=== PATIENT | male | born 1960 | race Caucasian/White ===

== ENCOUNTER → 2016-05-10 | Outpatient (CLI) | payer BC ==
[2016-05-10 08:00] LABS: Basophils % (A) 1 %; CH 30.7; CHCM 34.7; Eosinophils # (A) 0.2 k/uL (0-0.7); Eosinophils % (A) 3 %; HCT 41.9 % (39.0-53.0); HDW 2.52; HGB 13.9 gm/dL (13.0-17.5); Luc # (Auto) 0.15; Luc % (Auto) 3; Lymphocytes # (A) 1.1 k/uL (1.0-4.8); Lymphocytes % (A) 22 %; MCH 29.4 pg (25.0-35.0); MCHC 33.2 g/dL (31.0-37.0); MCV 88.8 fL (80.0-100.0); Mean Platelet Volume 7.7; Monocytes # (A) 0.2 k/uL (0-1.0); Monocytes % (A) 4 %; Neutrophils # (A) 3.4 k/uL (1.3-7.7); Neutrophils % (A) 67 %; RBC 4.71 m/uL (4.30-5.90); RDW 12.6 % (11.5-15.5); WBC (Perox) 5.31
[2016-05-10 08:21] LABS: ALT 33 U/L (21-72); AST 16 U/L (17-59); Alkaline Phosphatase 63 U/L (38-126); Anion Gap 9 mmol/L; Blood Urea Nitrogen 17 mg/dL (9-20); Calcium 8.9 mg/dL (8.4-10.2); Carbon Dioxide 26 mmol/L (22-30); Chloride 106 mmol/L (98-107); Cholesterol 171 mg/dL (<200); Glucose 160 mg/dL (74-99); HDL Cholesterol 38 mg/dL (40-60); Non-African American GFR(MDRD) 59 (>60 ml/min/1.73 sqM); Potassium 4.5 mmol/L (3.5-5.1); Sodium 141 mmol/L (137-145); Total Bilirubin 1.1 mg/dL (0.2-1.3); Total Protein 6.5 g/dL (6.3-8.2); Triglycerides 185 mg/dL (<150)
[2016-05-10 11:34] LABS: Hemoglobin A1C 6.6 % (4.2-6.1)
== END | disposition home or self-care (01) ==
LOC: LABWHC1 07:21
PROVIDERS: ATTEND Internal Medicine Geriatric Medicine
DX: G60.3 Idiopathic progressive neuropathy (principal); N18.9 Chronic kidney disease, unspecified; E11.65 Type 2 diabetes mellitus with hyperglycemia
CPT/HCPCS: 36415; 80053; 80061; 83036; 84439; 84443; 85025

== ENCOUNTER 2016-09-20 11:13 | Inpatient (IN) | payer OTHER ==
[2016-09-20] MEDS ORDERED: DILTIAZEM 5 MG/ML 5 ML VIAL IVP STA (11:40)
[2016-09-20] MEDS ORDERED: DILTIAZEM 125 MG in SODIUM CHLORIDE 0.9% 100 ML IV ONE (11:45)
--- NOTE | 2016-09-20 11:47 | ED ---
General Adult HPI - General Chief complaint: Arrhythmia/Palpitations Stated complaint: racing heart Time Seen by Provider: 09/20/16 11:25 Source: patient, RN notes reviewed Mode of arrival: wheelchair Limitations: no limitations - History of Present Illness Initial comments: Patient is a pleasant 55-year-old male presenting to the emergency Department with palpitations. Patient has had symptoms since this morning. Symptoms occur with exertion. Patient has had 3 episodes of exertion with associated palpitations. Patient questions if there may be minimal associated shortness of breath. Patient has been more sweaty than normal today. Patient is unclear if this is from the heat and humidity or symptoms. No chest pain. No nausea. No history of similar symptoms previously. - Related Data Home Medications Medication Instructions Recorded Confirmed Hydrocortisone Pr Cream 1 applic RECTAL BID PRN 09/20/16 09/20/16 [Proctosol-Hc 2.5%] Ibuprofen [Motrin] 600 mg PO Q8H PRN 09/20/16 09/20/16 Irbesartan [Avapro] 300 mg PO HS 09/20/16 09/20/16 glipiZIDE XL [Glucotrol Xl] 2.5 mg PO BID 09/20/16 09/20/16 metFORMIN HCL ER [Glucophage Xr] 1,000 mg PO AC-BID 09/20/16 09/20/16 Allergies Allergy/AdvReac Type Severity Reaction Status Date / Time No Known Allergies Allergy Verified 09/20/16 11:56 Review of Systems ROS Statement: Those systems with pertinent positive or pertinent negative responses have been documented in the HPI. ROS Other: All systems not noted in ROS Statement are negative. Constitutional: Denies: fever Eyes: Denies: eye pain ENT: Denies: ear pain Respiratory: Denies: cough Cardiovascular: Reports: palpitations. Denies: chest pain Endocrine: Reports: fatigue Gastrointestinal: Denies: abdominal pain, nausea Genitourinary: Denies: urgency Musculoskeletal: Denies: back pain Skin: Denies: rash Neurological: Denies: weakness Past Medical History Past Medical History: Diabetes Mellitus, Hypertension History of Any Multi-Drug Resistant Organisms: None Reported Past Surgical History: Hernia Repair Additional Past Surgical History / Comment(s): varicose vein stripping Past Psychological History: No Psychological Hx Reported Smoking Status: Never smoker Past Alcohol Use History: Rare Past Drug Use History: None Reported General Exam Limitations: no limitations General appearance: alert, in no apparent distress Head exam: Present: atraumatic Eye exam: Present: normal appearance, PERRL ENT exam: Present: normal oropharynx Neck exam: Present: normal inspection Respiratory exam: Present: normal lung sounds bilaterally Cardiovascular Exam: Present: tachycardia, irregular rhythm Expanded Peripheral pulses: 2+: Radial (R), Radial (L), Posterior Tibialis (R), Posterior Tibialis (L) GI/Abdominal exam: Present: soft. Absent: tenderness Extremities exam: Present: normal inspection. Absent: pedal edema, calf tenderness Back exam: Present: normal inspection Neurological exam: Present: alert Psychiatric exam: Present: normal affect, normal mood Skin exam: Present: normal color Course Vital Signs 09/20/16 09/20/16 09/20/16 11:15 11:47 12:53 Temperature 98.1 F Pulse Rate 84 115 H Pulse Rate [ 141 H Web Administrator ] Respiratory 20 16 Rate Blood Pressure 143/82 131/78 O2 Sat by Pulse 98 94 L Oximetry EKG Findings - EKG Comments: EKG Findings:: A flutter with 21 AV conduction. Rate 139. QRS 88. QT 320. QTc 486. Normal axis. Normal QRS. No acute ST change. Medical Decision Making - Medical Decision Making Patient reevaluated and resting comfortably in bed. Patient updated on results and plan. Dr. Lock has been paged for admission for Dr. Reinoso. Heart rate remains between 101 20 on Cardizem drip - Lab Data Lab Results 09/20/16 09/20/16 09/20/16 Range/Units 12:02 12:02 12:02 PT 10.5 (9.0-12.0) sec INR 1.0 (<1.1) APTT 23.2 (22.0-30.0) sec Magnesium 1.9 (1.6-2.3) mg/dL Total Creatine Kinase 91 (55-170) U/L CK-MB (CK-2) 1.4 (0.0-2.4) ng/mL CK-MB (CK-2) Rel Index 1.5 Troponin I <0.012 (0.000-0.034) ng/mL - Radiology Data Radiology results: image reviewed (Chest x-ray reveals lung base atelectasis favored over infiltrate) Critical Care Time Critical Care Time: Yes Total Critical Care Time: 32 Disposition Clinical Impression: Atrial fibrillation with RVR Disposition: ADMITTED IP TO THIS [facility] Referrals: Helio Reinoso MD [Primary Care Provider] - 1-2 days Decision Time: 13:23
[2016-09-20 12:37] LABS: Creatine Kinase 91 U/L (55-170)
[2016-09-20 12:41] LABS: Partial Thromboplastin Time 23.2 sec (22.0-30.0); Prothrombin Time 10.5 sec (9.0-12.0)
[2016-09-20 12:50] LABS: Creatine Kinase MB 1.4 ng/mL (0.0-2.4); Troponin I <0.012 ng/mL (0.000-0.034)
--- NOTE | 2016-09-20 12:51 | XR ---
EXAMINATION TYPE: XR chest 1V portable DATE OF EXAM: 09/20/2016 COMPARISON: 05/24/2011 HISTORY: Dysrhythmia TECHNIQUE: Single frontal view of the chest is obtained. FINDINGS: There is no focal air space opacity, pleural effusion, or pneumothorax seen. The cardiac silhouette size is within normal limits. The osseous structures are intact. Linear changes at the l eft lung base. IMPRESSION: Linear changes left lung base atelectasis favored over infiltrate..
[2016-09-20] MEDS ORDERED: HEPARIN SODIUM,PORCINE 5,000 UNIT/ML 1 ML VIAL IV PRN (13:23)
[2016-09-20] MEDS ORDERED: HEPARIN SODIUM,PORCINE 5,000 UNIT/ML 1 ML VIAL IV ONE (13:23)
[2016-09-20] MEDS ORDERED: NITROGLYCERIN SL TABS 0.4 MG TAB SUBLINGUAL PRN (13:23)
[2016-09-20] MEDS: HEPARIN SODIUM,PORCINE/D5W PMX 25,000 UNIT in DEXTROSE/WATER 1 500ML.BAG IV SCH (13:45)
[2016-09-20 16:40] VITALS: BMI 34.0
[2016-09-20 17:35] LABS: Glucose,Whole Blood 202 mg/dL (75-99)
[2016-09-20 19:28] LABS: Creatine Kinase 77 U/L (55-170)
[2016-09-20 19:42] LABS: Creatine Kinase MB 1.4 ng/mL (0.0-2.4); Troponin I <0.012 ng/mL (0.000-0.034)
[2016-09-20 20:57] LABS: Glucose,Whole Blood 120 mg/dL (75-99)
[2016-09-21 00:38] LABS: Creatine Kinase 65 U/L (55-170)
[2016-09-21 00:51] LABS: Creatine Kinase MB 1.2 ng/mL (0.0-2.4); Troponin I <0.012 ng/mL (0.000-0.034)
[2016-09-21 06:45] LABS: Glucose,Whole Blood 166 mg/dL (75-99)
[2016-09-21 09:00] LABS: CH 31.1; CHCM 34.4; HCT 39.4 % (39.0-53.0); HDW 2.36; HGB 13.3 gm/dL (13.0-17.5); MCH 30.8 pg (25.0-35.0); MCHC 33.9 g/dL (31.0-37.0); MCV 90.9 fL (80.0-100.0); Mean Platelet Volume 7.7; RBC 4.33 m/uL (4.30-5.90); RDW 13.1 % (11.5-15.5); WBC 5.2 k/uL (3.8-10.6)
[2016-09-21] MEDS ORDERED: ASPIRIN 81 MG CHEW PO SCH (09:00)
[2016-09-21] MEDS ORDERED: ASPIRIN 325 MG TAB PO SCH (09:00)
[2016-09-21 09:11] LABS: Anion Gap 11 mmol/L; Blood Urea Nitrogen 15 mg/dL (9-20); Calcium 8.8 mg/dL (8.4-10.2); Carbon Dioxide 20 mmol/L (22-30); Chloride 108 mmol/L (98-107); Cholesterol 150 mg/dL (<200); Glucose 222 mg/dL (74-99); HDL Cholesterol 41 mg/dL (40-60); Non-African American GFR(MDRD) >60 (>60 ml/min/1.73 sqM); Potassium 4.2 mmol/L (3.5-5.1); Sodium 139 mmol/L (137-145); Triglycerides 146 mg/dL (<150)
[2016-09-21] MEDS: METOPROLOL TARTRATE 25 MG TAB PO SCH ×2 (09:20→21:23)
[2016-09-21 11:51] LABS: Glucose,Whole Blood 171 mg/dL (75-99)
[2016-09-21] MEDS: HEPARIN SODIUM,PORCINE/D5W PMX 25,000 UNIT in DEXTROSE/WATER 1 500ML.BAG IV SCH (14:01)
[2016-09-21 15:22] LABS: Hemoglobin A1C 6.7 % (4.2-6.1)
--- NOTE | 2016-09-21 15:57 | CONS ---
DATE OF CONSULTATION: Mr. Miner is 55-year-old male with a known history of hypertension and diabetes mellitus, who presented with one day symptoms of palpitation associated with lightheadedness and mild dyspnea. In the emergency room, he was noted to be in atrial flutter and subsequently converted to sinus mechanism. The patient has not had any prior cardiac history or documented arrhythmia. He is average in exercise tolerance and has no exertional chest pain. His breathing has been stable. He denies any dizziness or palpitation. He denies any history of PND, orthopnea, or peripheral edema. He had no recent cardiac work-up. His coronary risk factors are remarkable for the history of hypertension, diabetes mellitus. He is nonsmoker. His lipid profile according to him has been stable in the past. His medications include: 1. Metformin 1 gram twice a day. 2. Glipizide 2.5 mg twice a day. 3. Avapro 300 mg daily. REVIEW OF SYSTEMS: RESPIRATORY SYSTEM: He has no recent wheezing. No cough. No history of documented obstructive lung disease. GI system: He had a prior history of GI bleeding related to hemorrhage. system: No dysuria or hematuria. Nervous system: No stroke or seizure. PHYSICAL EXAMINATION: He is a 55-year-old male, alert, oriented, in no apparent distress. Blood pressure 169/90 with a heart rate in 70s. HEAD: Normocephalic. EYES: Sclerae anicteric. NECK: Good upstroke. No bruit. No jugular venous distention. LUNGS: Clear to auscultation. HEART: Regular rate and rhythm. S1, S2, no S3, no S4, no murmur or rub. ABDOMEN: Soft, nontender, positive bowel sounds. No organomegaly. EXTREMITIES: No edema. Intact distal pulses. LAB DATA: Initial EKG revealed atrial flutter with 2:1 conduction. Subsequent EKG revealed sinus mechanism, rate of 66 with no acute changes. His lab data revealed troponin less than 0.012. IMPRESSION: 1. Paroxysmal atrial flutter. Patient back in sinus mechanism. 2. History of hypertension. 3. Diabetes mellitus. RECOMMENDATION: I will continue the IV heparin for now. I will start him on a Lopressor 25 mg twice a day. I will obtain stress echocardiogram to rule out ischemic component. Patient MIKAELA VASC-2 score is high with a history of hypertension, and diabetes and he would require chronic anticoagulation. I have discussed with him those findings. If his stress echocardiogram is normal, then I will reinitiate oral anticoagulation. Depending on the results of his echo and his stress test, further recommendations will be made. In the meantime, we will check his thyroid function tests and electrolytes. Thank you for this consult. We will follow with you.
[2016-09-21 16:48] LABS: Glucose,Whole Blood 149 mg/dL (75-99)
[2016-09-21] MEDS: metFORMIN 500 MG TAB PO SCH (17:04)
--- NOTE | 2016-09-21 17:05 | HP ---
DATE OF ADMISSION: 09/20/2016 CHIEF COMPLAINT: Palpitation. HISTORY OF PRESENT ILLNESS: This is a 55-year-old male with past medical history significant for diabetes, presents to the hospital with palpitation. Patient was evaluated in the emergency department and was diagnosed with atrial fibrillation. Patient was started on Cardizem drip, heparin drip and admitted to [facility]. Patient said that symptoms started yesterday morning prior to arrival to the emergency department. Said that he was doing his daily activities without any excessive exertion. Patient felt palpitation, shortness of breath and denied any loss of consciousness or near syncope. Patient said that he had couple episodes of palpitation in the past. That he did not pay attention, but this time it was strong enough to make him come to the emergency department. Denied nausea or vomiting, abdominal pain, recent infection, upper respiratory symptoms, change in the bowel movements, weight loss, night sweats, low grade fever or weight loss. The patient is diabetic for a long time. Said that his hemoglobin A1c has been between 6 and 7. Patient is controlling his diabetes with medication and to a certain limit focusing on his diet. Patient denied tobacco, alcohol or drug abuse. Denied any family history of coronary artery disease. REVIEW OF SYSTEMS: All 14 systems reviewed and negative except as above. HOME MEDICATIONS: Reviewed and reconciled in the chart. ALLERGIES: No known drug allergies. PAST MEDICAL AND SURGICAL HISTORY: 1. Diabetes type 2 [id number]. 2. Hypertension. 3. Hernia repair. 4. Varicose vein stripping. SOCIAL HISTORY: The patient denied tobacco, alcohol or drug abuse. Said that he is independent in all his daily activity. FAMILY HISTORY: Reviewed and negative. PHYSICAL EXAMINATION: Vital signs in the emergency department, heart rate was in found to be in 141, temperature 98.1, respiratory rate 20, blood pressure 143/82 and saturation 98% on room air. GENERAL: In his stated age, in no acute distress. Obese. HEENT: Atraumatic, normocephalic. PERRLA. NECK: Supple, no masses. No thyromegaly. LUNGS: Clear to auscultation bilaterally. HEART: Normal S1, S2. No murmur, rubs, or gallops. Irregularly irregular sinus rhythm at this point. Lower extremity no edema. ABDOMEN: Soft, no tenderness, positive bowel sounds in all 4 quadrants. Alert, and oriented x3. Cranial nerves II through XII are intact. Normal deep tendon reflexes and sensation. SKIN: No new rash. Imaging and labs: EKG showed A-flutter with 2:1 AV conduction, normal otherwise. PT, PTT, INR within normal limits. Troponin negative. Magnesium 1.9. Chest x-ray showed atelectasis. CBC showed normal findings. Chemistry showed normal findings. Glucose is fluctuating between 120 and 220. TSH is 2.4, LDL 80, HDL of 41, triglycerides 146, total cholesterol is 150. ASSESSMENT AND PLAN: 1. Atrial flutter with rapid ventricular response. Patient currently in sinus rhythm. Converted on Cardizem drip and heparin drip. The patient's Cardizem drip was discontinued. Heart rate is controlled right now. Patient will be continued on heparin drip to be switched to oral anticoagulation and based on his insurance coverage as patient Bakari score is 2 and is considered candidate for anticoagulation. I had a long discussion with the patient regarding current options and he is aware of the side effects and we will have social work nurse to evaluate his pharmacy coverage for anticoagulation. Discussed also with Dr. Conner from cardiology was agreeable to the current treatment plan. The patient will be continued on heparin drip as mentioned above. I would like to continue with Metoprolol which was started by cardiology 25 mg p.o. twice daily, monitor blood pressure closely and continue monitoring. TSH was checked and showed normal finding with lipid panel was checked as well and his hemoglobin A1c is controlled and patient optimized for other medical standpoint. Counseled regarding weight loss and exercise. 2. Diabetes management as above. Will continue with current regimen. 3. Hypertension, seems to be controlled. Will continue with Avapro daily and Lopressor was added. We will continue monitoring for goal less than 140/90. 4. Morbid obesity with central obesity. Patient counseled regarding weight loss and healthy lifestyle and exercising. 5. Questionable obstructive sleep apnea. Patient counseled regarding close follow up with his primary care physician in need for sleep study on outpatient basis. 6. Discharge planning based on clinical progress.
[2016-09-21 20:54] LABS: Glucose,Whole Blood 113 mg/dL (75-99)
[2016-09-21] MEDS ORDERED: LOSARTAN 50 MG TAB PO SCH (21:00)
[2016-09-22] MEDS: HEPARIN SODIUM,PORCINE/D5W PMX 25,000 UNIT in DEXTROSE/WATER 1 500ML.BAG IV SCH (05:49)
[2016-09-22 06:01] LABS: Glucose,Whole Blood 159 mg/dL (75-99)
[2016-09-22 06:26] LABS: CH 31.2; CHCM 35.1; HDW 2.51; HGB 13.5 gm/dL (13.0-17.5); MCH 30.8 pg (25.0-35.0); MCHC 34.6 g/dL (31.0-37.0); MCV 89.2 fL (80.0-100.0); Mean Platelet Volume 7.6; RBC 4.37 m/uL (4.30-5.90); RDW 12.6 % (11.5-15.5); WBC 6.2 k/uL (3.8-10.6)
[2016-09-22 06:44] LABS: Anion Gap 11 mmol/L; Blood Urea Nitrogen 15 mg/dL (9-20); Calcium 8.7 mg/dL (8.4-10.2); Carbon Dioxide 24 mmol/L (22-30); Chloride 106 mmol/L (98-107); Glucose 167 mg/dL (74-99); Non-African American GFR(MDRD) 59 (>60 ml/min/1.73 sqM); Sodium 141 mmol/L (137-145)
[2016-09-22 08:01] VITALS: RESP 18
[2016-09-22] MEDS ORDERED: ASPIRIN 81 MG CHEW PO SCH (09:00)
[2016-09-22 09:43] LABS: Glucose,Whole Blood 178 mg/dL (75-99)
--- NOTE | 2016-09-22 11:03 | ECHOF ---
Referral Reason:a fib MEASUREMENTS -------- HEIGHT: 203.2 cm WEIGHT: 140.6 kg BP: 132/82 RVIDd: 3.3 cm (< 3.3) IVSd: 1.5 cm (0.6 - 1.1) LVIDd: 4.5 cm (3.9 - 5.3) LVPWd: 1.5 cm (0.6 - 1.1) IVSs: 1.9 cm LVIDs: 3.2 cm LVPWs: 2.0 cm LA Diam: 3.8 cm (2.7 - 3.8) LAESV Index (A-L): 31.91 ml/m Ao Diam: 4.5 cm (2.0 - 3.7) AV Cusp: 2.9 cm (1.5 - 2.6) MV EXCURSION: 21.171 mm (> 18.000) MV EF SLOPE: 73 mm/s (70 - 150) EPSS: 0.9 cm MV E Puneet: 0.46 m/s MV DecT: 270 ms MV A Puneet: 0.55 m/s MV E/A Ratio: 0.83 RAP: 5.00 mmHg RVSP: 24.64 mmHg FINDINGS -------- This was a technically good study. The left ventricular size is normal. There is moderate concentric left ventricular hypertrophy. Overall left ventricular systolic function is low-normal with, an EF between 50 - 55 %. The diastolic filling pattern is normal for the age of the patient 7.50. The right ventricle is mildly enlarged. LA is midly dilated 29-33ml/m2. The right atrium is normal in size. 1.5mg of Definity was utilized for enhancement of images The aortic valve is trileaflet and appears structurally normal. The mitral valve is normal. Mild tricuspid regurgitation present. Right ventricular systolic pressure is normal at < 35 mmHg. Trace/mild (physiologic) pulmonic regurgitation. The aortic root is dilated measuring 4.5cm. The inferior vena cava is mildly dilated. The pericardium is normal. CONCLUSIONS -------- 1. This was a technically good study. 2. The mitral valve is normal. 3. Mild tricuspid regurgitation present. 4. Right ventricular systolic pressure is normal at < 35 mmHg. 5. Trace/mild (physiologic) pulmonic regurgitation. 6. The aortic root is dilated measuring 4.5cm. 7. The inferior vena cava is mildly dilated. 8. The pericardium is normal. 9. The left ventricular size is normal. 10. There is moderate concentric left ventricular hypertrophy. 11. Overall left ventricular systolic function is low-normal with, an EF between 50 - 55 %. 12. The diastolic filling pattern is normal for the age of the patient 7.50 13. The right ventricle is mildly enlarged. 14. LA is midly dilated 29-33ml/m2. 15. 1.5mg of Definity was utilized for enhancement of images 16. The aortic valve is trileaflet and appears structurally normal. DRILLING ASSISTANT: Tali Allred RDCS
[2016-09-22] MEDS: metFORMIN 500 MG TAB PO SCH (12:16)
[2016-09-22] MEDS: METOPROLOL TARTRATE 25 MG TAB PO SCH (12:17)
--- NOTE | 2016-09-22 12:35 | ECHOS ---
DATE OF SERVICE: 09/22/2016 AGE: 55Y SEX: M HT: 80 WT: 310 lbs. Protocol Dante: X Others: Stress Echo Stage: III Dur. of Exercise: 7:45 *Heart Rate Blood Pressure *Rest: 84 Rest: 164/91 * *Max. Achieved: 151 Maximum BP: 216/81 85% PMHR: 139 100% PMHR: 164 *METS: 9.5 INDICATIONS: Chest pain. MEDICATIONS: Patient was exercised for a total period of 7 minutes and 45 seconds. Peak heart rate of 151 was achieved. Maximum blood pressure of 216/81 mmHg was noted. Resting EKG shows ( ) of any chest pain during the test. Resting EKG shows normal sinus rhythm with normal FL interval and QRS duration and normal ST-T waves. No ST segment depression suggestive of ischemia was noted. Occasional PVCs are noted. The baseline echocardiographic images reveal normal left ventricular chamber size with normal left ventricular systolic function. In the immediate postexercise period, normal increase in the wall thickness and contractility is noted. FINAL IMPRESSION: This stress echocardiographic study is negative for stress-induced ischemia. EKG portion of the stress test is not suggestive of ischemia. Occasional PVCs were noted.
--- NOTE | 2016-09-22 14:41 | P.DS ---
Providers Date of admission: 09/20/16 13:23 Expected date of discharge: 09/22/16 Attending physician: Helio Reinoso Consults: 09/20/16 13:23 Consult Physician Urgent Consulting Provider: Arthur Conner Consult Reason/Comments: a fib Do you want consulting provider notified?: Yes Primary care physician: Helio Reinoso [facility] Course: This is a 55-year-old male patient of Dr. Reinoso with a past medical history of diabetes mellitus type 2, hypertension. Patient presented with complaints of palpitations with lightheadedness and shortness of breath. He came into [facility] emergency center where he was found to be in atrial flutter and started on Cardizem drip, heparin drip and admitted to the [facility] where he subsequently converted to a sinus rhythm. Patient was seen in consultation by Dr. Conner with recommendations for Lopressor and eliquis. Stress echocardiogram was negative. Echocardiogram reveals EF of 50-55%, mild tricuspid regurgitation, moderate concentric left ventricle hypertrophy, aortic root is dilated at 4.5 cm, LA mildly dilated at 29 -33. Triglycerides 146, cholesterol 150, LDL 80, HDL 41. TSH was 2.4. Patient was cleared from cardiology for discharge home. Patient will be discharged home today in stable condition. Discharge diagnoses: 1. New onset paroxysmal atrial fibrillation now in a sinus rhythm. 2. Hypertension. 3. Possible sleep apnea. Patient to have outpatient sleep study done 4. Diabetes mellitus type 2 well controlled with hemoglobin A1c of 6.7 Discharge plan: Return home Impression and plan of care have been directed as dictated by the signing physician. Kaylan Diaz nurse practitioner acting as scribe for signing physician. Patient Condition at Discharge: Good Plan - Discharge Summary New Discharge Prescriptions: New Aspirin 81 mg PO DAILY Metoprolol Tartrate [Lopressor] 25 mg PO BID #60 tab Apixaban [Eliquis] 5 mg PO BID #30 tab Continue Ibuprofen [Motrin] 600 mg PO Q8H PRN PRN Reason: Pain Hydrocortisone Pr Cream [Proctosol-Hc 2.5%] 1 applic RECTAL BID PRN PRN Reason: Hemorrhoids metFORMIN HCL ER [Glucophage Xr] 1,000 mg PO AC-BID glipiZIDE XL [Glucotrol XL] 2.5 mg PO BID Irbesartan [Avapro] 300 mg PO HS Discharge Medication List Hydrocortisone Pr Cream [Proctosol-Hc 2.5%] 1 applic RECTAL BID PRN 09/20/16 [ History] Ibuprofen [Motrin] 600 mg PO Q8H PRN 09/20/16 [History] Irbesartan [Avapro] 300 mg PO HS 09/20/16 [History] glipiZIDE XL [Glucotrol XL] 2.5 mg PO BID 09/20/16 [History] metFORMIN HCL ER [Glucophage Xr] 1,000 mg PO AC-BID 09/20/16 [History] Apixaban [Eliquis] 5 mg PO BID #30 tab 09/22/16 [Rx] Aspirin 81 mg PO DAILY 09/22/16 [Rx] Metoprolol Tartrate [Lopressor] 25 mg PO BID #60 tab 09/22/16 [Rx] Follow up Appointment(s)/Referral(s): Arthur Conner MD [STAFF PHYSICIAN] - 1 Week (Offices will call with an appointment date and time.) Helio Reinoso MD [Primary Care Provider] - 09/29/16 1:30 pm (Appointment with nurse practioner. If appointment date and time does not work out please call office to change date and time.) Patient Instructions/Handouts: Atrial Fibrillation (DC), Safe Use of Anticoagulants (DC), Cardiac Stress Test (DC) Discharge Disposition: HOME SELF-CARE
[2016-09-22 15:09] VITALS: BP 145/68; PULSE 65; TEMP 97.8
--- NOTE | 2016-09-22 16:43 | PN ---
Mr. Miner is a 55-year-old male with a history of hypertension and diabetes who presented with atrial flutter. He is back in sinus mechanism. He is doing well this morning, denying any chest pain. His breathing has been stable. He denies any dizziness or palpitation. He denies any nausea. He continues to be at this time on metoprolol tartrate 25 mg twice a day, losartan 100 mg daily, metformin, glipizide and aspirin 81 mg daily. PHYSICAL EXAMINATION: Blood pressure running in the 130s to 150s with a heart rate in the 60s. LUNGS: Clear. HEART: Regular rate and rhythm. S1, S2. No S3. No rub. ABDOMEN: Soft, nontender. EXTREMITIES: No edema. Lab data revealed BUN and creatinine of 15 and 1.26. IMPRESSION: 1. Atrial flutter; maintaining sinus mechanism. 2. Hypertension. 3. Diabetes mellitus. RECOMMENDATION: Patient had an echocardiogram that revealed an ejection fraction of 50% to 55% with mild tricuspid regurgitation and no evidence of pulmonary hypertension. At this point will proceed with a stress test. If there is no evidence of inducible ischemia, the patient should be able to be discharged home today and followed as an outpatient, and I would recommend initiating anticoagulation prior to discharge.
[2016-09-22] MEDS ORDERED: APIXABAN 5 MG TAB PO SCH (21:00)
== END 2016-09-22 15:50 | disposition home or self-care (01) | DRG 310 ==
LOC: EC 11:13 → 6SEL 13:23
PROVIDERS: ADMIT Internal Medicine Geriatric Medicine; ATTEND Internal Medicine Geriatric Medicine
DX: I48.0 Paroxysmal atrial fibrillation (principal); E66.01 Morbid (severe) obesity due to excess calories; I10 Essential (primary) hypertension; I48.92 Unspecified atrial flutter; G47.30 Sleep apnea, unspecified; I07.1 Rheumatic tricuspid insufficiency; E11.9 Type 2 diabetes mellitus without complications; Z68.33 Body mass index [BMI] 33.0-33.9, adult; Z79.84 Long term (current) use of oral hypoglycemic drugs; Z79.899 Other long term (current) drug therapy
CPT/HCPCS: 36415; 71010; 80048; 80053; 80061; 82043; 82550; 82553; 83036; 83735; 84439; 84443; 84484; 85025; 85027; 85049; 85610; 85730; 93005; 93017; 93306; 93350; 96365; 96366; 96368; 96376; 99291

== ENCOUNTER → 2016-09-20 | Outpatient (CLI) | payer OTHER ==
[2016-09-20 08:08] LABS: Basophils % (A) 1 %; CH 31.1; CHCM 34.4; Eosinophils # (A) 0.2 k/uL (0-0.7); Eosinophils % (A) 3 %; HCT 44.4 % (39.0-53.0); HDW 2.42; HGB 15.1 gm/dL (13.0-17.5); Luc # (Auto) 0.24; Luc % (Auto) 4; Lymphocytes # (A) 1.3 k/uL (1.0-4.8); Lymphocytes % (A) 23 %; MCH 30.7 pg (25.0-35.0); MCHC 33.9 g/dL (31.0-37.0); MCV 90.7 fL (80.0-100.0); Mean Platelet Volume 7.5; Monocytes # (A) 0.3 k/uL (0-1.0); Monocytes % (A) 5 %; Neutrophils # (A) 3.9 k/uL (1.3-7.7); Neutrophils % (A) 65 %; RDW 12.9 % (11.5-15.5); WBC 5.9 k/uL (3.8-10.6); WBC (Perox) 5.95
[2016-09-20 08:32] LABS: ALT 29 U/L (21-72); AST 16 U/L (17-59); Alkaline Phosphatase 61 U/L (38-126); Anion Gap 9 mmol/L; Blood Urea Nitrogen 16 mg/dL (9-20); Calcium 8.9 mg/dL (8.4-10.2); Carbon Dioxide 24 mmol/L (22-30); Chloride 109 mmol/L (98-107); Cholesterol 162 mg/dL (<200); Glucose 169 mg/dL (74-99); HDL Cholesterol 41 mg/dL (40-60); Non-African American GFR(MDRD) 59 (>60 ml/min/1.73 sqM); Potassium 4.4 mmol/L (3.5-5.1); Sodium 142 mmol/L (137-145); Total Bilirubin 1.1 mg/dL (0.2-1.3); Total Protein 6.7 g/dL (6.3-8.2); Triglycerides 171 mg/dL (<150)
[2016-09-20 12:09] LABS: Hemoglobin A1C 6.6 % (4.2-6.1)
== END | disposition home or self-care (01) ==
LOC: LABWHC1 07:43
PROVIDERS: ATTEND Internal Medicine Geriatric Medicine
DX: I10 Essential (primary) hypertension (principal); E11.65 Type 2 diabetes mellitus with hyperglycemia; E78.00 Pure hypercholesterolemia, unspecified
CPT/HCPCS: 36415; 80053; 80061; 82043; 83036; 84439; 84443; 85025

== ENCOUNTER → 2016-10-14 | Outpatient (CLI) | payer OTHER ==
[2016-10-14 13:42] LABS: Blood Urea Nitrogen 20 mg/dL (9-20); Non-African American GFR(MDRD) 60 (>60 ml/min/1.73 sqM)
--- NOTE | 2016-10-14 15:41 | CT ---
EXAMINATION TYPE: CT angio chest DATE OF EXAM: 10/14/2016 COMPARISON: NONE HISTORY: 56-year-old male Dilated aortic root TECHNIQUE: Contiguous axial scanning of the chest performed without and with IV Contrast, patient inj ected with 100 mL of Omnipaque 350. Coronal/sagittal MIP reconstructions performed. 3-D reconstructio ns generated on a dedicated independent workstation. CT DLP: 1277.6 mGycm Automated exposure control for dose reduction was used. FINDINGS: Heart is normal size without pericardial effusion. There is cardiac motion making assessment of the aortic root difficult. It is estimated to be 4.0 x 3 .9 cm, coronal mid image 18 and sagittal medic image 24. No evidence for intramural hematoma or convincing evidence for dissection. Just above the root, the aorta measures 3.4 cm. At the mid ascending aorta, it is borderline ectatic at 3.5 cm. The proximal arch measures 3.3 cm. Distal arch measures 3.2 cm. Upper descending thoracic aorta ectatic and 3.0 cm. Lower descending thoracic aorta ectatic at 2.6 cm. No thoracic lymphadenopathy by CT size criteria. Evaluation of the lungs shows mild dependent atelectasis. There is a 3 mm right upper lobe pulmonary nodule axial image 21. No consolidation or pleural effusion. Visualized upper abdomen shows splenomegaly at 14.6 cm. Bones: An angiomatous within multiple vertebral bodies. Mild multilevel degenerative disc disease. No osseous destructive process. IMPRESSION: 1. CARDIAC MOTION LIMITING ACCURATE ASSESSMENT OF THE AORTIC ROOT. IT IS ESTIMATED AT 4.0 X 3.9 CM. 2. THE MID ASCENDING AORTA AND THE DESCENDING THORACIC AORTA ARE BOTH MILDLY ECTATIC MEASURING UP TO 3.5 AND 3.0 CM, RESPECTIVELY. 3. A 3 MM RIGHT UPPER LOBE PULMONARY NODULE. A 12 MONTH FOLLOW-UP CT OF THE CHEST CAN BE CONSIDERED. 4. SPLENOMEGALY AT 14.6 CM. CLINICALLY CORRELATE.
== END | disposition home or self-care (01) ==
LOC: RADCTMAIN 12:49
PROVIDERS: ATTEND Internal Medicine Interventional Cardiology
DX: I77.810 Thoracic aortic ectasia (principal); R91.1 Solitary pulmonary nodule
CPT/HCPCS: 82565; 84520; 71275; 36415; Q9967

== ENCOUNTER → 2016-12-02 | Outpatient (CLI) | payer OTHER ==
--- NOTE | 2016-12-03 06:09 | CONS ---
This is consultation note for sleep apnea. A 56-year-old male patient who was recently treated for a bout of atrial fibrillation. The patient was seen by Dr. Conner, underwent a cardiac evaluation and workup was negative. He is currently back into normal sinus rhythm. However, as part of the investigation for secondary cause of atrial fibrillation, sleep apnea was suspected and the patient was referred to me. He snores. The patient at times wakes up gasping for air, however, this occurs once every 6 months. He wakes up tired and he sometimes falls asleep during the day. 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 He goes to bed at 11 p.m., wake up at 5:30 a.m. in the morning. He averages around 6 to 7 hours of sleep. No restlessness of the lower extremities. No grinding of the teeth. No palpitations. No nocturnal heartburn. No sleep walking or sleep talking. No other parasomnias reported. Weight has been relatively stable over the past 1 year. PAST MEDICAL HISTORY: 1. Atrial fibrillation. 2. Diabetes. 3. Hypertension. 4. ( ). SURGICAL HISTORY Surgical history is hernia repair x2 and varicose veins from the right leg. ALLERGIES: Allergies are to ENVIRONMENTAL AGENTS and HAYFEVER. SOCIAL HISTORY: The patient is a nonsmoker. No history alcoholism. No history of IV drugs. FAMILY HISTORY: His family history is positive for sleep apnea in his brother. REVIEW OF SYSTEMS: Twelve point review of systems was done and the positive findings were all mentioned above in the hospital of present illness. PHYSICAL EXAMINATION: BP 161/91, pulse 76, respirations 16, temperature 97.4, saturation 94% on room air. Weight is 306. Height 6 feet 6 inches. Neck size is 17-3/4. GENERAL APPEARANCE: Calm, comfortable, in no acute distress. HEENT: Negative for JVD. No goiter. No neck masses. LUNGS: Clear to auscultation. HEART: Sounds regular rate and rhythm. Normal S1, S2. No S3, no murmurs. ABDOMEN: Soft, nontender. EXTREMITIES: No edema. No cyanosis or clubbing. IMPRESSION: 1. Suspected sleep apnea, based on symptoms and the patient is under further investigation. 2. Paroxysmal atrial fibrillation, currently in sinus rhythm. 3. Diabetes. 4. Hypertension. 5. ( ). PLAN: 1. Will set up this patient for screening polysomnogram to screen him for sleep apnea. 2. Encourage weight loss. 3. Sleep in a side kothari body position. 4. Implement good sleep hygiene measures. 5. Will make further recommendations based on the results of the sleep study. LUTHER
== END | disposition home or self-care (01) ==
LOC: SLEEP 13:02
PROVIDERS: ATTEND Internal Medicine Critical Care Medicine
DX: I48.0 Paroxysmal atrial fibrillation (principal); E11.9 Type 2 diabetes mellitus without complications; I10 Essential (primary) hypertension
CPT/HCPCS: 99211

== ENCOUNTER → 2017-01-10 | Outpatient (CLI) | payer OTHER ==
[2017-01-10 09:41] LABS: Basophils % (A) 1 %; CH 30.8; CHCM 33.7; Eosinophils # (A) 0.2 k/uL (0-0.7); Eosinophils % (A) 3 %; HCT 43.4 % (39.0-53.0); HDW 2.47; HGB 14.5 gm/dL (13.0-17.5); Luc # (Auto) 0.19; Luc % (Auto) 3; Lymphocytes # (A) 1.5 k/uL (1.0-4.8); Lymphocytes % (A) 24 %; MCH 30.6 pg (25.0-35.0); MCHC 33.4 g/dL (31.0-37.0); MCV 91.7 fL (80.0-100.0); Mean Platelet Volume 7.6; Monocytes # (A) 0.3 k/uL (0-1.0); Monocytes % (A) 5 %; Neutrophils # (A) 3.9 k/uL (1.3-7.7); Neutrophils % (A) 64 %; RBC 4.73 m/uL (4.30-5.90); RDW 12.7 % (11.5-15.5); WBC 6.1 k/uL (3.8-10.6); WBC (Perox) 6.16
[2017-01-10 09:47] LABS: ALT 25 U/L (21-72); AST 14 U/L (17-59); Alkaline Phosphatase 56 U/L (38-126); Anion Gap 11 mmol/L; Blood Urea Nitrogen 19 mg/dL (9-20); Carbon Dioxide 26 mmol/L (22-30); Chloride 105 mmol/L (98-107); Cholesterol 154 mg/dL (<200); Glucose 123 mg/dL (74-99); HDL Cholesterol 39 mg/dL (40-60); Non-African American GFR(MDRD) 56 (>60 ml/min/1.73 sqM); Potassium 4.5 mmol/L (3.5-5.1); Sodium 142 mmol/L (137-145); Total Protein 6.8 g/dL (6.3-8.2)
[2017-01-10 13:57] LABS: Hemoglobin A1C 6.1 % (4.2-6.1)
--- NOTE | 2017-01-10 16:02 | XR ---
EXAMINATION TYPE: XR chest 2V DATE OF EXAM: 01/10/2017 COMPARISON: September 20, 2016 HISTORY: Other disorders of the lung J 98.4 TECHNIQUE: Frontal and lateral views of the chest are obtained. FINDINGS: There is a linear strand of atelectasis at the right lung base. There is no Pleural effusi on, or pneumothorax seen. The cardiac silhouette size is within normal limits. The osseous structu res are intact. IMPRESSION: No acute cardiopulmonary process.
== END | disposition home or self-care (01) ==
LOC: LABWHC1 08:21
PROVIDERS: ATTEND Internal Medicine Geriatric Medicine
DX: J98.4 Other disorders of lung (principal); I48.91 Unspecified atrial fibrillation; E11.65 Type 2 diabetes mellitus with hyperglycemia
CPT/HCPCS: 36415; 71020; 80053; 80061; 83036; 84439; 84443; 85025

== ENCOUNTER → 2017-04-28 | Outpatient (CLI) | payer OTHER ==
--- NOTE | 2017-04-28 20:31 | PN ---
PROGRESS NOTE DATE OF SERVICE: 04/28/2017. HISTORY: This patient is a 56, with mild obstructive sleep apnea, positional with an AHI of 12, worse in the supine body position. He is coming in for a compliancy check knowing that the patient was given CPAP therapy at a pressure of 8 cm of water. He is a bit disappointed, he was expecting much better results, especially on his blood pressure response. I looked at his blood pressure control over the past month and it seems that the blood pressure control has been improving. Nevertheless, the patient was started on Norvasc which gave him some side effects and currently is completing a Medrol Dosepak. Clinically he seems to be a bit more refreshed during the day, yet the difference is not great. Despite all this, the patient is committed to the treatment. I checked his compliance data over the past 30 days and the patient's numbers are satisfactory. The patient has been averaging more than 4 hours of CPAP use per night and his AHI is down to less than 5. As such, treatment has been successful and the patient does not have any major leak and his Robinson score is currently at 4. He has made a commitment to use it for , especially with his history of paroxysmal atrial fibrillation and hypertension. PHYSICAL EXAMINATION: VITAL SIGNS: Current vital signs are as follows, blood pressure is 160/86, pulse 76, respirations 16, temperature 98.5 weight is 306. GENERAL: Appears calm and comfortable. HEAD: Head is atraumatic, normocephalic. NECK: Supple. There is no JVD, no goiter, no neck mass. LUNGS: Clear to auscultation. HEART: Heart sounds are regular and rhythm. Normal S1, S2. No S3. No murmurs. ABDOMEN: Soft, nontender. No organomegaly. EXTREMITIES: No edema. No cyanosis or clubbing. NEUROLOGIC: Alert and oriented x3. IMPRESSION: 1. Obstructive sleep apnea, mild yet positional, apnea-hypopnea index of 12, worse in the supine body position. The patient is successfully being treated with a CPAP at pressure of 8. 2. Hypertension. Currently on 3 different antihypertensive medications, with recent Norvasc allergy. 3. Hypertension. 4. Diabetes mellitus. 5. Paroxysmal atrial fibrillation, currently in sinus rhythm. PLAN: 1. Encourage weight loss. 2. The patient is committed to CPAP treatment and we will continue the same level of pressure. 3. Continue Simplus full face mask. 4. Encourage weight loss. 5. Monitor blood pressure. 6. See me back in a year's time, earlier if needed. For now, his treatment is successful. MMODL / IJN: [id number] /
== END | disposition home or self-care (01) ==
LOC: SLEEP 15:55
PROVIDERS: ATTEND Internal Medicine Critical Care Medicine
DX: G47.33 Obstructive sleep apnea (adult) (pediatric) (principal); I10 Essential (primary) hypertension; E11.9 Type 2 diabetes mellitus without complications; I48.0 Paroxysmal atrial fibrillation; Z99.89 Dependence on other enabling machines and devices; Z79.899 Other long term (current) drug therapy; Z88.8 Allergy status to other drugs, medicaments and biological substances

== ENCOUNTER → 2017-05-23 | Outpatient (CLI) | payer OTHER ==
[2017-05-23 08:43] LABS: Basophils % (A) 0 %; Eosinophils # (A) 0.2 k/uL (0-0.7); Eosinophils % (A) 3 %; HCT 41.1 % (39.0-53.0); HGB 13.5 gm/dL (13.0-17.5); Lymphocytes % (A) 19 %; MCH 29.6 pg (25.0-35.0); MCHC 32.9 g/dL (31.0-37.0); MCV 90.1 fL (80.0-100.0); Mean Platelet Volume 7.4; Monocytes # (A) 0.3 k/uL (0-1.0); Monocytes % (A) 5 %; Neutrophils # (A) 3.8 k/uL (1.3-7.7); Neutrophils % (A) 70 %; Platelet Count 183 k/uL (150-450); RBC 4.56 m/uL (4.30-5.90); RDW 13.1 % (11.5-15.5); WBC 5.4 k/uL (3.8-10.6)
[2017-05-23 09:17] LABS: ALT 26 U/L (21-72); AST 14 U/L (17-59); Alkaline Phosphatase 55 U/L (38-126); Anion Gap 9 mmol/L; Blood Urea Nitrogen 16 mg/dL (9-20); Calcium 9.5 mg/dL (8.4-10.2); Carbon Dioxide 29 mmol/L (22-30); Chloride 104 mmol/L (98-107); Cholesterol 178 mg/dL (<200); Glucose 140 mg/dL (74-99); HDL Cholesterol 40 mg/dL (40-60); LDL Cholesterol,Calculated 104 mg/dL (0-99); Potassium 4.4 mmol/L (3.5-5.1); Sodium 142 mmol/L (137-145); Total Bilirubin 0.9 mg/dL (0.2-1.3); Total Protein 6.7 g/dL (6.3-8.2); Triglycerides 169 mg/dL (<150)
[2017-05-23 09:32] LABS: T4, Free (Free Thyroxine) 0.92 ng/dL (0.78-2.19)
== END | disposition home or self-care (01) ==
LOC: LABWHC1 07:44
PROVIDERS: ATTEND Internal Medicine Geriatric Medicine
DX: I48.91 Unspecified atrial fibrillation (principal); E11.65 Type 2 diabetes mellitus with hyperglycemia
CPT/HCPCS: 36415; 80053; 80061; 84439; 84443; 85025

== ENCOUNTER 2017-06-03 02:25 | Emergency (ER) | payer OTHER ==
[2017-06-03] MEDS ORDERED: SODIUM CHLORIDE 0.9% 1,000 ML IV STA ×2 (02:44)
[2017-06-03] MEDS ORDERED: LORazepam 2 MG/ML INJ IV STA (02:46)
--- NOTE | 2017-06-03 03:00 | ED ---
Recheck HPI - General Chief Complaint: Recheck/Abnormal Lab/Rx Stated Complaint: hypertension Time Seen by Provider: 06/03/17 02:36 Source: patient, RN notes reviewed, old records reviewed Mode of arrival: ambulatory Limitations: no limitations - History of Present Illness Initial Comments: This patient is a 56-year-old male presents emergency Department chief complaint of elevated blood pressure. Patient reports that he's been dealing with high blood pressure for the past few months. He's been switched on different medications by his primary care provider. He arrives with a list of his blood pressures with past month. Patient reports that this evening he was trying to fall asleep, he does use a CPAP machine. He reports that he felt like his heart was beating too hard was trying to fall asleep and laid in bed anxious. Patient states that because he couldn't sleep he felt like he needed to come to the emergency department to be evaluated. He states he has some minor chest discomfort. He rates it a 2 out of 10. Denies shortness of breath , dizziness or headache. - Related Data Home Medications Medication Instructions Recorded Confirmed Hydrocortisone Pr Cream 1 applic RECTAL BID PRN 09/20/16 06/03/17 [Proctosol-Hc 2.5%] Ibuprofen [Motrin] 600 mg PO Q8H PRN 09/20/16 06/03/17 Irbesartan [Avapro] 300 mg PO HS 09/20/16 06/03/17 glipiZIDE XL [Glucotrol XL] 2.5 mg PO BID 09/20/16 06/03/17 metFORMIN HCL ER [Glucophage Xr] 1,000 mg PO AC-BID 09/20/16 06/03/17 cloNIDine HCL [Catapres] 0.1 mg PO TID 06/03/17 06/03/17 Previous Rx's Medication Instructions Recorded Apixaban [Eliquis] 5 mg PO BID #30 tab 09/22/16 Metoprolol Tartrate [Lopressor] 25 mg PO BID #60 tab 09/22/16 Allergies Allergy/AdvReac Type Severity Reaction Status Date / Time No Known Allergies Allergy Verified 09/20/16 11:56 Review of Systems ROS Statement: Those systems with pertinent positive or pertinent negative responses have been documented in the HPI. ROS Other: All systems not noted in ROS Statement are negative. Past Medical History Past Medical History: Atrial Fibrillation, Diabetes Mellitus, Hypertension Additional Past Medical History / Comment(s): YUDY History of Any Multi-Drug Resistant Organisms: None Reported Past Surgical History: Hernia Repair Additional Past Surgical History / Comment(s): varicose vein stripping, hernia repair x2 Past Anesthesia/Blood Transfusion Reactions: Unable to Obtain Additional Past Anesthesia/Blood Transfusion Reaction / Comment(s): never recieved blood products Past Psychological History: No Psychological Hx Reported Smoking Status: Never smoker Past Alcohol Use History: Rare Past Drug Use History: None Reported General Exam - General Exam Comments Initial Comments: 56-year-old male. No distress. He does appear anxious. Limitations: no limitations General appearance: alert, in no apparent distress Head exam: Present: atraumatic, normocephalic, normal inspection Eye exam: Present: normal appearance, PERRL, EOMI. Absent: scleral icterus, conjunctival injection, periorbital swelling ENT exam: Present: normal exam, mucous membranes moist Neck exam: Present: normal inspection. Absent: tenderness, meningismus, lymphadenopathy Respiratory exam: Present: normal lung sounds bilaterally. Absent: respiratory distress, wheezes, rales, rhonchi, stridor Cardiovascular Exam: Present: regular rate, normal rhythm, normal heart sounds. Absent: systolic murmur, diastolic murmur, rubs, gallop, clicks GI/Abdominal exam: Present: soft, normal bowel sounds. Absent: distended, tenderness, guarding, rebound, rigid Extremities exam: Present: normal inspection, full ROM, normal capillary refill. Absent: tenderness, pedal edema, joint swelling, calf tenderness Back exam: Present: normal inspection Neurological exam: Present: alert, oriented X3, CN II-XII intact Psychiatric exam: Present: normal affect, normal mood Skin exam: Present: warm, dry, intact, normal color. Absent: rash Course Vital Signs 06/03/17 06/03/17 02:26 03:13 Temperature 98.8 F Pulse Rate 66 Respiratory 16 Rate Blood Pressure 181/99 163/96 O2 Sat by Pulse 99 Oximetry Medical Decision Making - Medical Decision Making This patient is a 56-year-old male presents emergency Department chief complaint of elevated blood pressure. Patient reports that he's been dealing with high blood pressure for the past few months. He's been switched on different medications by his primary care provider. He arrives with a list of his blood pressures with past month. Patient reports that this evening he was trying to fall asleep, he does use a CPAP machine. He reports that he felt like his heart was beating too hard was trying to fall asleep and laid in bed anxious. This admission under that they will elevated blood pressure 181/99. Patient describes some minor chest discomfort a 2 out of 10. EKG was reviewed and shows no significant abnormalities. Chest x-ray was normal. Negative troponin. All the rest of up labwork was within normal limits. Lungs are clear to auscultation. Patient informed of these results. He was given 1 mg of Ativan due to anxiety. Patient blood pressure came down nicely afterwards. He states that he feels better denies any pain and wants to go home. Discussed she should follow-up with primary care provider. - Lab Data Result diagrams: 06/03/17 03:00 06/03/17 03:00 Lab Results 06/03/17 06/03/17 06/03/17 Range/Units 03:00 03:00 03:00 WBC 5.5 (3.8-10.6) k/uL RBC 4.44 (4.30-5.90) m/uL Hgb 13.1 (13.0-17.5) gm/dL Hct 39.7 (39.0-53.0) % MCV 89.5 (80.0-100.0) fL MCH 29.6 (25.0-35.0) pg MCHC 33.1 (31.0-37.0) g/dL RDW 12.9 (11.5-15.5) % Plt Count 166 (150-450) k/uL Neutrophils % 65 % Lymphocytes % 24 % Monocytes % 5 % Eosinophils % 3 % Basophils % 1 % Neutrophils # 3.5 (1.3-7.7) k/uL Lymphocytes # 1.3 (1.0-4.8) k/uL Monocytes # 0.3 (0-1.0) k/uL Eosinophils # 0.2 (0-0.7) k/uL Basophils # 0.0 (0-0.2) k/uL PT (9.0-12.0) sec INR (<1.2) APTT (22.0-30.0) sec Sodium 139 (137-145) mmol/L Potassium 4.3 (3.5-5.1) mmol/L Chloride 106 (98-107) mmol/L Carbon Dioxide 25 (22-30) mmol/L Anion Gap 8 mmol/L BUN 19 (9-20) mg/dL Creatinine 1.30 H (0.66-1.25) mg/dL Est GFR (MDRD) Af Amer >60 (>60 ml/min/1.73 sqM) Est GFR (MDRD) Non-Af 57 (>60 ml/min/1.73 sqM) Glucose 138 H (74-99) mg/dL Calcium 9.1 (8.4-10.2) mg/dL Magnesium 2.0 (1.6-2.3) mg/dL Total Bilirubin 0.8 (0.2-1.3) mg/dL AST 14 L (17-59) U/L ALT 20 L (21-72) U/L Alkaline Phosphatase 54 (38-126) U/L Total Creatine Kinase 71 (55-170) U/L CK-MB (CK-2) 0.9 (0.0-2.4) ng/mL CK-MB (CK-2) Rel Index 1.3 Troponin I <0.012 (0.000-0.034) ng/mL NT-Pro-B Natriuret Pep pg/mL Total Protein 6.2 L (6.3-8.2) g/dL Albumin 3.7 (3.5-5.0) g/dL Amylase 49 (30-110) U/L Lipase 125 (23-300) U/L 06/03/17 06/03/17 Range/Units 03:00 03:00 WBC (3.8-10.6) k/uL RBC (4.30-5.90) m/uL Hgb (13.0-17.5) gm/dL Hct (39.0-53.0) % MCV (80.0-100.0) fL MCH (25.0-35.0) pg MCHC (31.0-37.0) g/dL RDW (11.5-15.5) % Plt Count (150-450) k/uL Neutrophils % % Lymphocytes % % Monocytes % % Eosinophils % % Basophils % % Neutrophils # (1.3-7.7) k/uL Lymphocytes # (1.0-4.8) k/uL Monocytes # (0-1.0) k/uL Eosinophils # (0-0.7) k/uL Basophils # (0-0.2) k/uL PT 10.2 (9.0-12.0) sec INR 1.0 (<1.2) APTT 25.3 (22.0-30.0) sec Sodium (137-145) mmol/L Potassium (3.5-5.1) mmol/L Chloride (98-107) mmol/L Carbon Dioxide (22-30) mmol/L Anion Gap mmol/L BUN (9-20) mg/dL Creatinine (0.66-1.25) mg/dL Est GFR (MDRD) Af Amer (>60 ml/min/1.73 sqM) Est GFR (MDRD) Non-Af (>60 ml/min/1.73 sqM) Glucose (74-99) mg/dL Calcium (8.4-10.2) mg/dL Magnesium (1.6-2.3) mg/dL Total Bilirubin (0.2-1.3) mg/dL AST (17-59) U/L ALT (21-72) U/L Alkaline Phosphatase (38-126) U/L Total Creatine Kinase (55-170) U/L CK-MB (CK-2) (0.0-2.4) ng/mL CK-MB (CK-2) Rel Index Troponin I (0.000-0.034) ng/mL NT-Pro-B Natriuret Pep 76 pg/mL Total Protein (6.3-8.2) g/dL Albumin (3.5-5.0) g/dL Amylase (30-110) U/L Lipase (23-300) U/L 06/03/17 03:12 EKG shows normal sinus rhythm, possible anterior infarct age undetermined. Ventricular rate of 66 bpm. OK interval 206 ms. QRS duration 104 ms. QT QTC 426/446 ms. - Radiology Data Radiology results: report reviewed Chest x-ray was reviewed and negative for any acute cardiopulmonary process. Disposition Clinical Impression: Anxiety, Hypertension Disposition: HOME SELF-CARE Condition: Good Instructions: Hypertension (ED) Additional Instructions: Patient advised to follow-up with primary care physician. Continue to take your prescribed high blood pressure pills. Return to emergency department if any alarming signs or symptoms occur. Referrals: Helio Reinoso MD [Primary Care Provider] - 1-2 days Time of Disposition: 04:18
[2017-06-03 03:15] LABS: Basophils % (A) 1 %; Eosinophils # (A) 0.2 k/uL (0-0.7); Eosinophils % (A) 3 %; HCT 39.7 % (39.0-53.0); HGB 13.1 gm/dL (13.0-17.5); Lymphocytes # (A) 1.3 k/uL (1.0-4.8); Lymphocytes % (A) 24 %; MCH 29.6 pg (25.0-35.0); MCHC 33.1 g/dL (31.0-37.0); MCV 89.5 fL (80.0-100.0); Mean Platelet Volume 7.7; Monocytes # (A) 0.3 k/uL (0-1.0); Monocytes % (A) 5 %; Neutrophils # (A) 3.5 k/uL (1.3-7.7); Neutrophils % (A) 65 %; Platelet Count 166 k/uL (150-450); RBC 4.44 m/uL (4.30-5.90); RDW 12.9 % (11.5-15.5); WBC 5.5 k/uL (3.8-10.6)
[2017-06-03 03:23] LABS: ALT 20 U/L (21-72); AST 14 U/L (17-59); Albumin 3.7 g/dL (3.5-5.0); Alkaline Phosphatase 54 U/L (38-126); Amylase 49 U/L (30-110); Anion Gap 8 mmol/L; Blood Urea Nitrogen 19 mg/dL (9-20); Calcium 9.1 mg/dL (8.4-10.2); Carbon Dioxide 25 mmol/L (22-30); Chloride 106 mmol/L (98-107); Glucose 138 mg/dL (74-99); Lipase 125 U/L (23-300); Potassium 4.3 mmol/L (3.5-5.1); Sodium 139 mmol/L (137-145); Total Bilirubin 0.8 mg/dL (0.2-1.3); Total Protein 6.2 g/dL (6.3-8.2)
[2017-06-03 03:26] LABS: Partial Thromboplastin Time 25.3 sec (22.0-30.0); Prothrombin Time 10.2 sec (9.0-12.0)
--- NOTE | 2017-06-03 03:32 | XR ---
EXAM: XR Chest, 2 Views CLINICAL HISTORY: ITS.REASON XR Reason: Chest Pain TECHNIQUE: Frontal and lateral views of the chest. COMPARISON: No relevant prior studies available. FINDINGS: Lungs: Unremarkable. No consolidation. Pleural space: Unremarkable. No pneumothorax. Heart: Unremarkable. No cardiomegaly. Mediastinum: Unremarkable. Bones/joints: Unremarkable. IMPRESSION: No acute cardiopulmonary abnormality.
[2017-06-03 03:42] LABS: Creatine Kinase 71 U/L (55-170)
[2017-06-03 03:56] LABS: Creatine Kinase MB 0.9 ng/mL (0.0-2.4); Troponin I <0.012 ng/mL (0.000-0.034)
[2017-06-03 04:27] VITALS: BP 142/65; PULSE 55; RESP 18; TEMP 97.3
== END 2017-06-03 04:26 | disposition home or self-care (01) ==
LOC: EC 02:25
DX: I10 Essential (primary) hypertension (principal); F41.9 Anxiety disorder, unspecified; R07.89 Other chest pain; E11.9 Type 2 diabetes mellitus without complications; G47.33 Obstructive sleep apnea (adult) (pediatric); Z79.84 Long term (current) use of oral hypoglycemic drugs; Z79.899 Other long term (current) drug therapy; Z99.89 Dependence on other enabling machines and devices
CPT/HCPCS: 36415; 93005; 83880; 80053; 82150; 82550; 82553; 83690; 83735; 84484; 85025; 85610; 85730; 71046; 99284; 96374; 96361; J2060

== ENCOUNTER → 2017-06-11 | Outpatient (CLI) | payer OTHER ==
--- NOTE | 2017-06-11 10:10 | US ---
EXAMINATION TYPE: US renal artery duplex complet DATE OF EXAM: 06/11/2017 COMPARISON: NONE CLINICAL HISTORY: Essential Primary Hypertension I10. HTN for 2 months, diabetes MEASUREMENTS: RENAL SIZE: Rt Kidney: 13.4 x 6.5 x 5.7cm Lt Kidney: 12.6 x 5.9 x 5.7cm RESISTANCE INDEX Right: 0.65 Left: 0.58 RA/AO RATIO (< 3.5 ) Right: 1.0 Left: 1.4 RA VELOCITY ( < 180 cm/s) Right: 135.5cm/s Left: 197.9cm/s *Technical limitations due to overlying bowel content. Visualized portions of aorta appear unremarkab le. Bilateral kidneys measuring upper limits of normal in size. Left proximal renal artery slightly e levated systolic velocity. Brisk upstroke at segmental at renal hilum. Low resistive waveforms noted throughout *Incidental finding: Splenomegaly, spleen = 17.4cm Grayscale, color Doppler, spectral Doppler imaging performed of the abdominal aorta, renal arteries. Abdominal aorta is patent and shows triphasic waveform. IMPRESSION: Peak systolic velocity proximal left renal artery is elevated. Resistance index and renal artery to a ortic ratio are normal caliber. Findings could be due to tortuosity. Renal artery CTA or MRA to be co nfirmatory. Incidental splenomegaly.
== END | disposition home or self-care (01) ==
LOC: RADUSMAIN 07:45
PROVIDERS: ATTEND Internal Medicine Geriatric Medicine
DX: I77.89 Other specified disorders of arteries and arterioles (principal); I10 Essential (primary) hypertension
CPT/HCPCS: 93975

== ENCOUNTER → 2017-06-20 | Outpatient (CLI) | payer OTHER ==
[2017-06-20 08:03] LABS: Basophils # (A) 0.1 k/uL (0-0.2); Basophils % (A) 1 %; Eosinophils # (A) 0.2 k/uL (0-0.7); Eosinophils % (A) 3 %; HCT 37.8 % (39.0-53.0); HGB 12.4 gm/dL (13.0-17.5); Lymphocytes # (A) 1.3 k/uL (1.0-4.8); Lymphocytes % (A) 19 %; MCH 29.1 pg (25.0-35.0); MCHC 32.9 g/dL (31.0-37.0); MCV 88.5 fL (80.0-100.0); Mean Platelet Volume 7.7; Monocytes # (A) 0.3 k/uL (0-1.0); Monocytes % (A) 4 %; Neutrophils # (A) 4.8 k/uL (1.3-7.7); Neutrophils % (A) 72 %; Platelet Count 207 k/uL (150-450); RBC 4.27 m/uL (4.30-5.90); RDW 12.7 % (11.5-15.5); WBC 6.7 k/uL (3.8-10.6)
[2017-06-20 08:33] LABS: Albumin 3.6 g/dL (3.5-5.0); Potassium 4.2 mmol/L (3.5-5.1); Total Bilirubin 0.5 mg/dL (0.2-1.3); Total Protein 6.3 g/dL (6.3-8.2)
[2017-06-20 20:40] LABS: Hemoglobin A1C 6.6 % (4.0-6.0)
== END | disposition home or self-care (01) ==
LOC: LABWHC1 07:37
PROVIDERS: ATTEND Internal Medicine Geriatric Medicine
DX: I10 Essential (primary) hypertension (principal); E11.22 Type 2 diabetes mellitus with diabetic chronic kidney disease; E11.65 Type 2 diabetes mellitus with hyperglycemia; N18.9 Chronic kidney disease, unspecified
CPT/HCPCS: 36415; 80053; 82088; 83036; 83835; 85025

== ENCOUNTER → 2017-11-09 | Outpatient (CLI) | payer OTHER ==
[2017-11-09 08:15] LABS: HCT 38.6 % (39.0-53.0); HGB 12.7 gm/dL (13.0-17.5); MCH 28.9 pg (25.0-35.0); MCHC 32.8 g/dL (31.0-37.0); Mean Platelet Volume 7.5; Platelet Count 172 k/uL (150-450); RBC 4.39 m/uL (4.30-5.90); WBC 5.5 k/uL (3.8-10.6)
[2017-11-09 08:30] LABS: Albumin 3.9 g/dL (3.5-5.0); Calcium 9.1 mg/dL (8.4-10.2); Phosphorus 3.6 mg/dL (2.5-4.5); Potassium 4.4 mmol/L (3.5-5.1); Total Bilirubin 0.8 mg/dL (0.2-1.3); Total Protein 6.3 g/dL (6.3-8.2); Uric Acid 7.2 mg/dL (3.5-8.5)
[2017-11-09 08:52] LABS: Appearance,Urine Clear (Clear); Bilirubin,Urine Negative (Negative); Blood,Urine Negative (Negative); Color,Urine Light Yellow; Glucose,Urine (UA) Negative (Negative); Ketones,Urine Negative (Negative); Leukocyte Esterase,Urine Negative (Negative); Nitrite,Urine Negative (Negative); Protein,Urine Negative (Negative); Specific Gravity,Urine 1.012 (1.001-1.035); Urobilinogen,Urine <2.0 mg/dL (<2.0)
[2017-11-09 16:47] LABS: Iron Saturation 17.38 (15.00-50.00)
[2017-11-09 16:58] LABS: Vitamin D 25 Hydroxy 33.1 ng/mL (30.0-100.0)
[2017-11-09 16:59] LABS: Parathyroid Hormone Intact 42.8 pg/mL (14.0-72.0)
[2017-11-09 18:16] LABS: Hemoglobin A1C 6.4 % (4.0-6.0)
== END | disposition home or self-care (01) ==
LOC: LABWHC1 07:31
PROVIDERS: ATTEND Internal Medicine
DX: E11.9 Type 2 diabetes mellitus without complications (principal); N39.0 Urinary tract infection, site not specified; E21.3 Hyperparathyroidism, unspecified; N18.3 Chronic kidney disease, stage 3 (moderate); R80.9 Proteinuria, unspecified; D63.1 Anemia in chronic kidney disease; E55.9 Vitamin D deficiency, unspecified; M10.9 Gout, unspecified
CPT/HCPCS: 36415; 80053; 81003; 82043; 82306; 82570; 82728; 83036; 83540; 83550; 83735; 83970; 84100; 84550; 85027

== ENCOUNTER → 2018-01-19 | Outpatient (CLI) | payer OTHER ==
[~2018-01-19] MED LIST: SODIUM CHLORIDE 0.9% 500 ML 500 ML IV ONE; SODIUM CHLORIDE 0.9% 500 ML 500 ML in EMPTY BAG 1 BAG IV PRN
[2018-01-19 10:21] VITALS: BP 170/92; PULSE 72; RESP 16; TEMP 98.4
--- NOTE | 2018-01-19 16:14 | CT ---
EXAMINATION TYPE: CT angio chest DATE OF EXAM: 01/19/2018 COMPARISON: Prior CT angiogram of the chest 10/14/2016 HISTORY: Thoracic aortic aneurysm CT DLP: 702 mGycm Automated exposure control for dose reduction was used. CONTRAST: CTA scan of the thorax is performed with IV Contrast, patient injected with 100 mL of Isovue 370, pul monary embolism protocol. MIP images are created and reviewed. 3D reconstructed images are created on an independent workstation and reviewed. FINDINGS: LUNGS: The lungs are grossly clear, there is no concerning parenchymal mass or nodule identified, 2 m m right upper lobe nodule stable. Minimal dependent atelectatic changes. There is no pleural effusi on or pneumothorax seen. The tracheobronchial tree is patent. AORTA: Ascending aorta at the level of the root measures approximately 4 cm. Proximal descending aor ta measures approximately 2.9 cm. The proximal celiac axis is dilated likely due to post stenotic dil atation and measures 18 mm. MEDIASTINUM: There is satisfactory enhancement of the pulmonary artery and its branches, there is no CT evidence for pulmonary embolism. There are no greater than 1 cm hilar or mediastinal lymph nodes. No pericardial effusion is seen. OTHER: The spleen is enlarged as on prior. Hemangiomas are present in multiple thoracic vertebral rosa dies as on prior., Mild anterior wedging at the midthoracic level, T8. IMPRESSION: FINDINGS ESSENTIALLY STABLE.
== END ==
LOC: PROCWHC3 09:35
PROVIDERS: ATTEND Nurse Practitioner Family
DX: N14.1 Nephropathy induced by other drugs, medicaments and biological substances (principal); I71.2 Thoracic aortic aneurysm, without rupture
CPT/HCPCS: 82565; 84520; 71275; 96360; 96361; 36415; Q9967

== ENCOUNTER → 2018-01-23 | Outpatient (CLI) | payer OTHER ==
[2018-01-23 09:03] LABS: Calcium 9.3 mg/dL (8.4-10.2); Potassium 4.8 mmol/L (3.5-5.1)
== END | disposition home or self-care (01) ==
LOC: LABWHC1 08:06
PROVIDERS: ATTEND Nurse Practitioner Family
DX: N18.3 Chronic kidney disease, stage 3 (moderate) (principal)
CPT/HCPCS: 36415; 80048

== ENCOUNTER → 2018-05-20 | Outpatient (CLI) | payer BC ==
[2018-05-20 07:09] LABS: HCT 38.3 % (39.0-53.0); HGB 13.1 gm/dL (13.0-17.5); MCH 30.8 pg (25.0-35.0); MCHC 34.2 g/dL (31.0-37.0); MCV 90.1 fL (80.0-100.0); Mean Platelet Volume 6.9; Platelet Count 168 k/uL (150-450); RBC 4.25 m/uL (4.30-5.90); RDW 12.9 % (11.5-15.5); WBC 4.9 k/uL (3.8-10.6)
[2018-05-20 07:36] LABS: Appearance,Urine Clear (Clear); Bilirubin,Urine Negative (Negative); Blood,Urine Negative (Negative); Color,Urine Yellow; Glucose,Urine (UA) Negative (Negative); Ketones,Urine Negative (Negative); Leukocyte Esterase,Urine Negative (Negative); Nitrite,Urine Negative (Negative); PH, Urine 5.5 (5.0-8.0); Protein,Urine Negative (Negative); Specific Gravity,Urine 1.013 (1.001-1.035); Urobilinogen,Urine <2.0 mg/dL (<2.0)
[2018-05-20 11:48] LABS: Iron Saturation 17.57 (15.00-50.00)
[2018-05-20 11:49] LABS: Parathyroid Hormone Intact 30.4 pg/mL (14.0-72.0)
[2018-05-20 12:05] LABS: Albumin 4.1 g/dL (3.80-4.90); Albumin/Globulin Ratio 2.16 (1.60-3.17); Calcium 9.2 mg/dL (8.7-10.3); Globulin 1.9 g/dL (1.6-3.3); Magnesium 1.8 mg/dL (1.5-2.4); Phosphorus 3.4 mg/dL (2.4-5.1); Potassium 4.3 mmol/L (3.5-5.5); Total Bilirubin 0.8 mg/dL (0.3-1.2); Uric Acid 6.6 mg/dL (3.7-8.7)
[2018-05-20 18:22] LABS: Hemoglobin A1C 6.6 % (4.0-6.0)
== END | disposition home or self-care (01) ==
LOC: LABWHC1 06:44
PROVIDERS: ATTEND Nurse Practitioner Family
DX: N39.0 Urinary tract infection, site not specified (principal); N18.3 Chronic kidney disease, stage 3 (moderate); D63.1 Anemia in chronic kidney disease; E21.3 Hyperparathyroidism, unspecified; E55.9 Vitamin D deficiency, unspecified; M10.9 Gout, unspecified; R80.9 Proteinuria, unspecified
CPT/HCPCS: 36415; 80053; 81003; 82043; 82306; 82570; 82728; 83036; 83540; 83550; 83735; 83970; 84100; 84550; 85027

== ENCOUNTER → 2018-05-29 | Outpatient (CLI) | payer BC ==
[2018-05-29 17:07] LABS: LDL Cholesterol,Calculated 96.8 mg/dL (0.0-131.0); VLDL Calculation 32.2 mg/dL (5.00-40.00)
== END | disposition home or self-care (01) ==
LOC: LABWHC1 08:16
PROVIDERS: ATTEND Nurse Practitioner Adult Health
DX: E78.2 Mixed hyperlipidemia (principal)
CPT/HCPCS: 36415; 80061; 84450; 84460

== ENCOUNTER → 2018-12-10 | Outpatient (CLI) | payer BC ==
[2018-12-10 17:16] LABS: HCT 37.1 % (39.0-53.0); HGB 12.6 gm/dL (13.0-17.5); MCHC 33.9 g/dL (31.0-37.0); MCV 88.4 fL (80.0-100.0); Mean Platelet Volume 7.5; Platelet Count 174 k/uL (150-450); RDW 13.2 % (11.5-15.5); WBC 5.6 k/uL (3.8-10.6)
[2018-12-10 17:19] LABS: Appearance,Urine Clear (Clear); Bilirubin,Urine Negative (Negative); Blood,Urine Negative (Negative); Color,Urine Light Yellow; Glucose,Urine (UA) Negative (Negative); Ketones,Urine Negative (Negative); Leukocyte Esterase,Urine Negative (Negative); Nitrite,Urine Negative (Negative); Protein,Urine Negative (Negative); Specific Gravity,Urine 1.009 (1.001-1.035); Urobilinogen,Urine <2.0 mg/dL (<2.0)
[2018-12-11 00:45] LABS: Iron Saturation 20.81 (15.00-50.00)
[2018-12-11 00:54] LABS: Vitamin D 25 Hydroxy 30.2 ng/mL (30.0-100.0)
[2018-12-11 01:48] LABS: African American GFR (CKD) 63.3 (60.0-200.0); Albumin 4.2 g/dL (3.80-4.90); Albumin/Globulin Ratio 2.47 (1.60-3.17); Anion Gap 6.1 mmol/L (4.00-12.00); BUN/Creat Ratio 12.86 Ratio (12.00-20.00); Calcium 9.1 mg/dL (8.7-10.3); Carbon Dioxide 24.9 mmol/L (21.6-31.8); Globulin 1.7 g/dL (1.6-3.3); Magnesium 1.8 mg/dL (1.5-2.4); Phosphorus 3.2 mg/dL (2.4-5.1); Potassium 4.2 mmol/L (3.5-5.5); Total Bilirubin 0.7 mg/dL (0.3-1.2); Total Protein 5.9 g/dL (6.2-8.2); Uric Acid 6.7 mg/dL (3.7-8.7)
[2018-12-11 01:51] LABS: Hemoglobin A1C 6.7 % (4.0-6.0)
== END | disposition home or self-care (01) ==
LOC: LABWHC1 16:42
PROVIDERS: ATTEND Nurse Practitioner Family
DX: M10.9 Gout, unspecified (principal); N39.0 Urinary tract infection, site not specified; E11.22 Type 2 diabetes mellitus with diabetic chronic kidney disease; N18.3 Chronic kidney disease, stage 3 (moderate); E55.9 Vitamin D deficiency, unspecified; D64.9 Anemia, unspecified; R80.9 Proteinuria, unspecified
CPT/HCPCS: 36415; 80053; 81003; 82043; 82306; 82570; 82728; 83036; 83540; 83550; 83735; 83970; 84100; 84550; 85027

== ENCOUNTER → 2018-12-21 | Outpatient (CLI) | payer BC ==
--- NOTE | 2018-12-21 19:48 | PN ---
PROGRESS NOTE This patient is coming in for an annual check regarding obstructive sleep apnea. The patient has mild YUDY with an AHI of 12 and currently is on CPAP pressure of 8. He continues to be successfully treated. I checked the compliancy data on his machine and the patient is averaging around 5.6 hours of CPAP use per night and his AHI is down to 0.2 with a leak of 13 L/minute. He is doing extremely well. He has lost around 6 pounds. He has no specific complaints for now. Blood pressure is still being regulated. He is on 3 different antihypertensive medications, including clonidine, labetalol and irbesartan. PHYSICAL EXAMINATION: VITAL SIGNS: BP is 155/86, pulse 69, respirations 16, temperature 97.9, saturation 97% on room air. BMI is 34.6. [place] score is 9. Weight is 300. Height is 6 feet 6 inches. GENERAL APPEARANCE: Calm, comfortable. HEAD: Atraumatic, normocephalic. Neck is supple. There is no JVD. No goiter or neck masses. LUNGS: Clear to auscultation. HEART: Heart sounds are regular rate and rhythm. Normal S1, S2. No S3, S4. No murmurs. ABDOMEN: Soft, nontender. No organomegaly. EXTREMITIES: No edema. No cyanosis or clubbing. IMPRESSION: 1. Obstructive sleep apnea, symptomatic. AHI of 12, worse in a supine body position. The patient underwent successful CPAP therapy, currently at a pressure of 8 cm of water. 2. Hypersomnia, recovered. 3. Hypertension. 4. Diabetes mellitus. 5. Paroxysmal atrial fibrillation, currently in a sinus rhythm. PLAN: 1. Keep CPAP therapy at the same level of pressure. 2. Renew CPAP mask and supplies. 3. Encourage further weight loss. 4. Blood pressure management per Cardiology. 5. See me back on an as-needed basis. MMODL / IJN: [id number] /
== END | disposition home or self-care (01) ==
LOC: SLEEP 16:21
PROVIDERS: ATTEND Internal Medicine Critical Care Medicine
DX: G47.33 Obstructive sleep apnea (adult) (pediatric) (principal); I10 Essential (primary) hypertension; E11.9 Type 2 diabetes mellitus without complications; I48.0 Paroxysmal atrial fibrillation; Z99.89 Dependence on other enabling machines and devices; Z79.899 Other long term (current) drug therapy

== ENCOUNTER → 2019-05-30 | Outpatient (CLI) | payer BC | END | disposition home or self-care (01) | LOC: LABWHC1 16:59 | PROVIDERS: ATTEND Urology | DX: R97.20 Elevated prostate specific antigen [PSA] (principal) | CPT/HCPCS: 36415; 84153 ==

== ENCOUNTER → 2019-06-20 | Outpatient (CLI) | payer BC ==
--- NOTE | 2019-06-21 06:55 | CT ---
EXAMINATION TYPE: CT angio chest DATE OF EXAM: 06/20/2019 COMPARISON: CTA chest January 19, 2018 and older study October 14, 2016. HISTORY: Thoracic aortic aneurysm w/out rupture. No stents. CT DLP: 827.40 mGycm. Automated Exposure Control for Dose Reduction was Utilized. CONTRAST: CTA scan of the thorax is performed with IV Contrast, patient injected with 80 mL of Isovue 370, pulm onary embolism protocol. Three-D reconstructed images are created on an independent workstation and r marshall. FINDINGS: LUNGS: Dependent atelectasis bilateral lower lobes . No suspicious new greater than 4 mm pulmonary no dules or masses. No pleural effusion or pneumothorax noted bilaterally. The tracheobronchial tree is patent. MEDIASTINUM: Main pulmonary artery measures 2.4 cm axial image 32. Adjacent thoracic aorta measures u p to 3.3 cm in diameter. Normal 3 vessel origin from the arch. I it measuring up to 3.4 cm near root. I am unable to duplicate measurement of near 4 cm. There are no greater than 1 cm hilar or mediastin al lymph nodes. No cardiomegaly or pericardial effusion is seen. OTHER: Partial visualization of Splenomegaly redemonstrated measuring nearly 15.0 cm long axis oliveros l image 75 unchanged from prior. Redemonstration multiple hemangiomas throughout the visualized spine with mild height loss or chronic compression at T8 level IMPRESSION: No significant interval change. Maximum ascending aortic diameter 3.4 cm on current study .
== END | disposition home or self-care (01) ==
LOC: RADCTMAIN 15:54
PROVIDERS: ATTEND Internal Medicine Interventional Cardiology
DX: I71.2 Thoracic aortic aneurysm, without rupture (principal)
CPT/HCPCS: 82565; 84520; 71275; 36415; Q9967

== ENCOUNTER 2021-05-23 13:18 | Day surgery (SDC) | payer BC ==
[2021-05-22 12:45] VITALS: BMI 32.9
[2021-05-23] MEDS ORDERED: LIDOCAINE 1% (10MG/ML) FOR IV START INTRADERMA ONE (13:50)
[2021-05-23] MEDS ORDERED: LACTATED RINGERS 1,000 ML IV ONE (13:50)
[2021-05-23 13:52] VITALS: RESP 16; TEMP 98.2
[2021-05-23 14:06] LABS: Glucose,Whole Blood 138 mg/dL (75-99)
[2021-05-23] MEDS ORDERED: PROPOFOL 10 MG/ML 20 ML VIAL IV ONE (14:21)
--- NOTE | 2021-05-23 14:56 | P.GSHP ---
History of Present Illness H&P Date: 05/23/21 Chief Complaint: Rectal bleeding 60-year-old male here today for colonoscopy. Patient was set up for colonoscopy yesterday. Unfortunately the patient's prep was poor and we had to reschedule colonoscopy for today after repeat bowel prep. Patient says he has done better since yesterday. Patient with intermittent rectal bleeding we think related to hemorrhoids. Past Medical History Past Medical History: Atrial Fibrillation, Diabetes Mellitus, Hypertension, Sleep Apnea/CPAP/BIPAP Additional Past Medical History / Comment(s): YUDY-USES C PAP MACHINE History of Any Multi-Drug Resistant Organisms: None Reported Past Surgical History: Hernia Repair Additional Past Surgical History / Comment(s): varicose vein stripping, hernia repair x2. FAILED COLONOSCOPY 05/22/21 AT [facility] Past Anesthesia/Blood Transfusion Reactions: Unable to Obtain Additional Past Anesthesia/Blood Transfusion Reaction / Comment(s): never recieved blood products Smoking Status: Never smoker - Past Family History Father Family Medical History: Cancer Medications and Allergies Home Medications Medication Instructions Recorded Confirmed Type Hydrocortisone Pr Cream 1 applic RECTAL BID PRN 09/20/16 05/22/21 History [Proctosol-Hc 2.5%] glipiZIDE XL [Glucotrol XL] 2.5 mg PO BID 09/20/16 05/22/21 History metFORMIN HCL ER [Glucophage XR] 1,000 mg PO AC-BID 09/20/16 05/22/21 History Apixaban [Eliquis] 5 mg PO BID #30 tab 09/22/16 05/22/21 Rx cloNIDine HCL [Catapres] 0.1 mg PO TID 06/03/17 05/22/21 History Labetalol [Trandate] 200 mg PO BID 01/19/18 05/22/21 History Tamsulosin [Flomax] 0.4 mg PO DAILY 01/19/18 05/22/21 History Olmesartan Medoxomil 40 mg PO DAILY 05/22/21 05/22/21 History Allergies Allergy/AdvReac Type Severity Reaction Status Date / Time No Known Allergies Allergy Verified 05/23/21 13:40 Surgical - Exam Vital Signs Temp Pulse Resp BP Pulse Ox 98.2 F 84 16 185/100 96 05/23/21 13:49 05/23/21 13:49 05/23/21 13:49 05/23/21 13:49 05/23/21 13:49 Physical exam: General: Well-developed, well-nourished HEENT: Normocephalic, sclerae nonicteric Abdomen: Nontender, nondistended Extremities: No edema Neuro: Alert and oriented Results - Labs Abnormal Lab Results - Last 24 Hours (Table) 05/23/21 Range/Units 13:58 POC Glucose (mg/dL) 138 H (75-99) mg/dL Assessment and Plan (1) Rectal bleeding Narrative/Plan: Will proceed with colonoscopy at this time Current Visit: Yes Status: Acute Code(s): K62.5 - HEMORRHAGE OF ANUS AND RECTUM SNOMED Code(s): 18660976
--- NOTE | 2021-05-23 14:58 | P.PCN ---
Date of Procedure: 05/23/21 Procedure(s) Performed: PREOPERATIVE DIAGNOSIS: Rectal bleeding POSTOPERATIVE DIAGNOSIS: Diverticulosis, rectal polyp, hemorrhoids PROCEDURE: Colonoscopy with snare polypectomy ANESTHESIA: MAC SURGEON: Jake Lee M.D. SPECIMENS: Polyp ENDOSCOPIC PROCEDURE: The patient was placed on the endoscopy table in the left decubitus position. The Olympus colonoscope was inserted into the anus and passed under direct visualization to the base of the cecum. The appendiceal orifice was visualized. From that point the scope was slowly withdrawn inspecting all surfaces carefully. There were no neoplastic inflammatory or polypoid lesions throughout the cecum, ascending, transverse, descending, and sigmoid colon. In the rectum a small polyp was seen and removed using snare with cautery technique. The remainder the rectum was normal. The patient had extensive diverticulosis present. The patient's prep was still slightly suboptimal although most of the mucosal surfaces could be visualized. At the anus the patient was noted to have prominent internal and external hemorrhoids. Most prominent in the right posterior and left posterior locations. Prostate felt normal. The patient was taken to the recovery room in stable condition per anesthesia guidelines. RECOMMENDATIONS: Resume diet. Await biopsy results. Patient will consider operative hemorrhoidectomy.
[2021-05-23 15:13] VITALS: BP 162/92; PULSE 73
== END 2021-05-23 15:36 | disposition home or self-care (01) ==
LOC: ORWHC2ENDO 13:18
PROVIDERS: ATTEND Surgery
DX: D12.8 Benign neoplasm of rectum (principal); K57.30 Diverticulosis of large intestine without perforation or abscess without bleeding; K64.4 Residual hemorrhoidal skin tags; K64.8 Other hemorrhoids; I48.91 Unspecified atrial fibrillation; E11.9 Type 2 diabetes mellitus without complications; I10 Essential (primary) hypertension; G47.33 Obstructive sleep apnea (adult) (pediatric); Z98.890 Other specified postprocedural states; Z80.9 Family history of malignant neoplasm, unspecified; Z79.01 Long term (current) use of anticoagulants; Z79.84 Long term (current) use of oral hypoglycemic drugs; Z79.899 Other long term (current) drug therapy
CPT/HCPCS: 88305; 45385; J2704

== ENCOUNTER → 2023-01-26 | Outpatient (CLI) | payer BC ==
[2023-01-26 15:39] LABS: African American GFR (CKD) 45 (>60 ml/min/1.73 sqM); Blood Urea Nitrogen 28 mg/dL (9-20); Non-African American GFR(CKD) 39 (>60 ml/min/1.73 sqM)
--- NOTE | 2023-01-26 17:57 | CT ---
EXAMINATION TYPE: CT angio chest CT DLP: 1443.6 mGycm, Automated exposure control for dose reduction was used. DATE OF EXAM: 01/26/2023 4:42 PM COMPARISON: Multiple CTA chest with most recent 06/20/2019. 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 R/O thoracic aneurysm TECHNIQUE/CONTRAST: CTA scan of the thorax is performed without and with IV Contrast, patient injected with 80 cc with s ian of Isovue [id number]. Coronal and sagittal reformats obtained. 3-D reformats of the aorta are created on a separate workstation. FINDINGS: Lungs/Pleura: No evidence of focal consolidation, pleural effusion or pneumothorax. Right lower lobe linear atelectasis and/or scarring. No new or enlarging pulmonary nodules. Airway: Large airways are patent. Heart: Heart is within normal limits for size.. No significant pericardial effusion. Small coronary a rtery calcifications. Vasculature: Normal 3 vessel origin from the arch. Aortic root aneurysmal dilatation measuring up to 4.0 cm. The ascending thoracic aorta measures up to 3.6 cm. Descending thoracic aorta measures up to 2.5 cm. No evidence for dissection or intramural hematoma. Short segment stenosis with poststenotic d ilatation of the celiac axis again demonstrated. Mediastinum: No evidence of adenopathy. Musculoskeletal: No acute osseous abnormalities. Redemonstration of multiple hemangiomas throughout t he visualized spine with again mild height loss or chronic compression at T8. Soft Tissues: Unremarkable. Lower neck: No significant findings. Upper Abdomen: Mildly enlarged spleen measuring 14.5 cm in AP dimension. IMPRESSION: 1. Aortic root aneurysmal dilatation measuring up to 4.0 cm which is stable from 2018 exam. 2. Mild splenomegaly redemonstrated.
== END | disposition home or self-care (01) ==
LOC: RADCTMAIN 14:46
PROVIDERS: ATTEND Internal Medicine Interventional Cardiology
DX: I71.20 Thoracic aortic aneurysm, without rupture, unspecified (principal); R16.1 Splenomegaly, not elsewhere classified
CPT/HCPCS: 82565; 84520; 71275; 36415; Q9967

== ENCOUNTER → 2023-01-31 | Outpatient (CLI) | payer BC ==
[2023-01-31 13:36] LABS: Basophils # (A) 0.05 X 10*3/uL (0.00-0.10); Basophils % (A) 0.8 %; Eosinophils % (A) 3.1 %; HCT 38.6 % (39.6-50.0); HGB 13.2 d/dL (13.0-17.0); Lymphocytes # (A) 1.02 X 10*3/uL (0.90-5.00); MCH 30.1 pg (27.0-32.0); MCHC 34.2 d/dL (32.0-37.0); MCV 88.1 FL (80.0-97.0); Mean Platelet Volume 10.7 FL (9.5-12.2); Monocytes % (A) 7.8 %; NRBC Per 100 WBC 0 X 10*3/uL (0.00-0.01); Neutrophils # (A) 4.57 X 10*3/uL (1.80-7.70); Neutrophils % (A) 71.7 %; Platelet Count 210 X 10*3/uL (140-440); RBC 4.38 X 10*6/uL (4.40-5.60); RDW 12.3 % (11.5-14.5); WBC 6.38 X 10*3/uL (4.50-10.00)
[2023-01-31 13:55] LABS: ALT 12 U/L (10-49); AST 13 U/L (14-35); Albumin 4.2 d/dL (3.8-4.9); Albumin/Globulin Ratio 2.21 Ratio (1.60-3.17); Alkaline Phosphatase 52 U/L (41-126); BUN/Creat Ratio 12.84 Ratio (12.00-20.00); Blood Urea Nitrogen 24.4 mg/dL (9.0-27.0); Calcium 9.5 mg/dL (8.7-10.3); Carbon Dioxide 23.3 mmol/L (21.6-31.8); Chloride 100 mmol/L (96-109); Chol/HDL Ratio 4.24 Ratio; Globulin 1.9 d/dL (1.6-3.3); Glucose 165 mg/dL (70-110); LDL Cholesterol,Calculated 80.9 mg/dL (0.0-131.0); Potassium 4.3 mmol/L (3.5-5.5); Sodium 137 mmol/L (135-145); Total Bilirubin 0.9 mg/dL (0.3-1.2); Total Protein 6.1 d/dL (6.2-8.2); Uric Acid 7.1 mg/dL (3.7-8.7)
[2023-01-31 14:02] LABS: Urine Creatinine 93.3 mg/dL (39.0-259.0)
== END | disposition home or self-care (01) ==
LOC: LABWHC1 10:11
PROVIDERS: ATTEND Internal Medicine Geriatric Medicine
DX: I12.9 Hypertensive chronic kidney disease with stage 1 through stage 4 chronic kidney disease, or unspecified chronic kidney disease (principal); E11.22 Type 2 diabetes mellitus with diabetic chronic kidney disease; E11.40 Type 2 diabetes mellitus with diabetic neuropathy, unspecified; N18.31 Chronic kidney disease, stage 3a
CPT/HCPCS: 36415; 80053; 80061; 82043; 82570; 83036; 84443; 84550; 85025